=== PATIENT | female | born 1970 | race African-American/Black ===

== ENCOUNTER 2018-09-04 09:33 | Outpatient (CLI) | payer MEDICARE, OTHER ==
--- NOTE | 2018-09-04 14:32 | RAD ---
LEFT HIP 2 VIEWS: Date: 09/04/18 COMPARISON: None. HISTORY: Pain in the left hip joint. FINDINGS: There is mild superior joint space narrowing and mild lateral acetabular osteophyte formation on the left. No acute fracture or dislocation seen. IMPRESSION: No acute findings. POS: [facility]
--- NOTE | 2018-09-04 14:33 | RAD ---
FRONTAL RADIOGRAPH PELVIS: Date: 09/04/18 HISTORY: Pain. FINDINGS: There is mild degenerative change involving bilateral hips and pubic symphysis. The pelvic ring is in tact. No widening of the sacroiliac joints of the pubic symphysis. No acute fracture. IMPRESSION: No acute findings. POS: [facility]
== END 2018-09-04 09:34 | disposition home or self-care (01) ==
LOC: RAD 09:33
PROVIDERS: ATTEND Nurse Practitioner Family
DX: M25.552 Pain in left hip (principal); R51 Headache
CPT/HCPCS: 72170; 85652

== ENCOUNTER 2018-09-08 10:21 | Outpatient (CLI) | payer MEDICARE, OTHER ==
--- NOTE | 2018-09-08 13:01 | MRI ---
MRI LUMBAR SPINE WITHOUT CONTRAST: History: Intervertebral disc disorder with radiculopathy. Several years of low back pain. Comparison: None. Technique: MRI of the lumbar spine was performed without intravenous gadolinium administration. Multi sequential, multiplanar imaging was performed. FINDINGS: Appropriate T1 marrow signal intensity in the lumbar vertebra. Lumbar vertebral body height is mainta ined. There is no fracture. No significant STIR hyperintensity to suggest edema or ligamentous injury . Symmetric signal intensity of the psoas muscles. Visualized solid organs are unremarkable. Conus medullaris terminates at the inferior aspect of L1. T12-L1: Adequate disc hydration. No significant central canal stenosis. L1-2: Adequate disc hydration. No significant central canal stenosis. Neural foramina are patent. L2-3: Adequate disc hydration. No significant central canal stenosis. Neural foramina are patent. L3-4: Adequate disc hydration. No significant central canal stenosis. Foramina are patent. L4-5: Adequate disc hydration. No significant central canal stenosis. Right neural foramen is patent. There is mild left foraminal narrowing due to disc material. There is mild bilateral facet hypertro phy. L5-S1: No significant central canal stenosis. Neural foramina are patent. Mild bilateral facet hypert rophy. IMPRESSION: No significant central canal stenosis or foraminal narrowing. POS: [facility]
== END 2018-09-08 10:22 | disposition home or self-care (01) ==
LOC: TBSIIMAG 10:21
PROVIDERS: ATTEND Nurse Practitioner Family
DX: M51.16 Intervertebral disc disorders with radiculopathy, lumbar region (principal)
CPT/HCPCS: 72148

== ENCOUNTER 2018-11-07 09:45 | Outpatient (CLI) | payer MEDICARE, MEDICAID | END 2018-11-07 09:46 | disposition home or self-care (01) | LOC: BICMAMMO 09:45 | PROVIDERS: ATTEND Family Medicine | DX: Z12.31 Encounter for screening mammogram for malignant neoplasm of breast (principal) | CPT/HCPCS: 77063; 77067 ==

== ENCOUNTER 2019-01-31 11:43 | Emergency (ER) | payer MEDICARE, MEDICAID ==
[2019-01-31 12:31] LABS: #Basophils 0.1 thou/uL (0.0-0.2); #Eosinphils 0.2 thou/uL (0.0-0.7); #Lymphocytes 2.9 thou/uL (1.20-3.40); #Monocytes 0.6 thou/uL (0.11-0.59); #Neutrophils 5.9 thou/uL (1.40-6.50); %Basophils 1.1 % (0.0-1.0); %Eosinophils 2.4 % (0.0-10.0); %Monocytes 5.8 % (0.0-10.0); %Neutrophils 60.7 % (42.0-75.0); Hemoglobin 13.2 g/dL (12.0-16.0); Mean Corpuscular Volume 82.5 fL (78.0-98.0); Mean Platelet Volume 7.8 fL (7.4-10.4); Platelet Count 327 thou/uL (130-400); RBC Distribution Width 14.8 % (11.5-14.5); Red Blood Cell (RBC) Count 4.72 mill/uL (4.20-5.40); White Blood Cell (WBC) Count 9.7 thou/uL (4.8-10.8)
--- NOTE | 2019-01-31 12:38 | RAD ---
CHEST ONE VIEW: HISTORY: Chest palpitations. Chest pain. COMPARISON: 08/02/2017 FINDINGS: Heart size is normal. Lungs show no acute confluent pneumonia, overt edema, or pleural effusion. IMPRESSION: 1. No acute intrathoracic disease. 2. Atherosclerosis of the aorta. 3. Stable from prior study. No new process. POS: [facility]
[2019-01-31 12:49] LABS: ALT (SGPT) 27 U/L (8-55); AST (SGOT) 28 U/L (5-34); Albumin 4.5 g/dL (3.5-5.0); Alkaline Phosphatase 98 U/L (40-150); Anion Gap 13 mmol/L (10-20); BUN (Urea Nitrogen) 12 mg/dL (7.0-18.7); Bilirubin, Total 0.7 mg/dL (0.2-1.2); CK (CPK) 324 U/L (29-168); Calc. Creatinine Clearance 0 mL/min (70-130); Calcium 9.3 mg/dL (7.8-10.44); Carbon Dioxide 25 mmol/L (22-29); Chloride 107 mmol/L (98-107); Estimated GFR-MDRD Greater than 90; Globulin 2.8 g/dL (2.4-3.5); Glucose 101 mg/dL (70-105); Lipase 25 U/L (8-78); Protein, Total 7.3 g/dL (6.0-8.3); Sodium 141 mmol/L (136-145)
[2019-01-31] MEDS ORDERED: Lidocaine Viscous Sol 2% 15 ml UD Cup ONE (13:04)
[2019-01-31] MEDS ORDERED: Mag-Al 1200 mg/1200 mg/30 ML UDCUP ONE (13:04)
== END 2019-01-31 13:35 | disposition home or self-care (01) ==
LOC: ERS 11:43
DX: F14.10 Cocaine abuse, uncomplicated (principal); R07.89 Other chest pain; K21.9 Gastro-esophageal reflux disease without esophagitis; I10 Essential (primary) hypertension; E78.5 Hyperlipidemia, unspecified; G43.909 Migraine, unspecified, not intractable, without status migrainosus; F41.9 Anxiety disorder, unspecified; Z79.899 Other long term (current) drug therapy; Z79.82 Long term (current) use of aspirin
CPT/HCPCS: 36415; 71045; 80053; 82550; 83690; 84484; 85025; 93005; 94760

== ENCOUNTER 2019-06-14 12:06 | Emergency (ER) | payer MEDICARE, OTHER ==
--- NOTE | 2019-06-14 12:23 | RAD ---
XR Chest 1 View Portable HISTORY: Chest pain COMPARISON: 01/31/2019 FINDINGS: The heart size is normal. The lungs are well expanded without focal areas of consolidation, pneumothorax or pleural effusions. IMPRESSION: No radiographic evidence of acute cardiopulmonary process.
[2019-06-14 12:29] LABS: #Basophils 0.1 thou/uL (0.0-0.2); #Eosinphils 0.1 thou/uL (0.0-0.7); #Lymphocytes 3.3 thou/uL (1.20-3.40); #Monocytes 0.5 thou/uL (0.11-0.59); #Neutrophils 3.9 thou/uL (1.40-6.50); %Basophils 1.1 % (0.0-1.0); %Eosinophils 1.9 % (0.0-10.0); %Lymphocytes 42.1 % (21.0-51.0); %Monocytes 5.8 % (0.0-10.0); %Neutrophils 49.1 % (42.0-75.0); Mean Corpuscular HGB CONC 34.4 g/dL (32.0-36.0); Mean Corpuscular Hemoglobin 28.2 pg (27.0-31.0); Mean Corpuscular Volume 82.1 fL (78.0-98.0); Mean Platelet Volume 7.5 fL (7.4-10.4); Platelet Count 352 thou/uL (130-400); RBC Distribution Width 13.6 % (11.5-14.5); Red Blood Cell (RBC) Count 4.97 mill/uL (4.20-5.40); White Blood Cell (WBC) Count 7.8 thou/uL (4.8-10.8)
[2019-06-14] MEDS ORDERED: Lidocaine Viscous Sol 2% 15 ml UD Cup ONE (12:43)
[2019-06-14] MEDS ORDERED: Mag-Al 1200 mg/1200 mg/30 ML UDCUP ONE (12:43)
[2019-06-14] MEDS ORDERED: Aspirin Chewable 81 MG TAB ONE (12:43)
[2019-06-14 12:52] LABS: ALT (SGPT) 12 U/L (8-55); AST (SGOT) 14 U/L (5-34); Albumin 5.2 g/dL (3.5-5.0); Alkaline Phosphatase 99 U/L (40-150); Anion Gap 12 mmol/L (10-20); BUN (Urea Nitrogen) 8 mg/dL (7.0-18.7); Bilirubin, Total 0.4 mg/dL (0.2-1.2); Calc. Creatinine Clearance 0 mL/min (70-130); Calcium 10.5 mg/dL (7.8-10.44); Carbon Dioxide 27 mmol/L (22-29); Chloride 102 mmol/L (98-107); Estimated GFR-MDRD 77; Globulin 3.6 g/dL (2.4-3.5); Glucose 94 mg/dL (70-105); Lipase 18 U/L (8-78); Potassium 3.8 mmol/L (3.5-5.1); Protein, Total 8.8 g/dL (6.0-8.3); Sodium 137 mmol/L (136-145)
== END 2019-06-14 13:14 | disposition home or self-care (01) ==
LOC: ERS 12:06
DX: K21.9 Gastro-esophageal reflux disease without esophagitis (principal); E78.5 Hyperlipidemia, unspecified; E78.00 Pure hypercholesterolemia, unspecified; I10 Essential (primary) hypertension; G43.909 Migraine, unspecified, not intractable, without status migrainosus; F41.0 Panic disorder [episodic paroxysmal anxiety]; Z79.899 Other long term (current) drug therapy; Z87.11 Personal history of peptic ulcer disease; Z79.82 Long term (current) use of aspirin
CPT/HCPCS: 71045; 80053; 83690; 84484; 85025; 93005; 94760

== ENCOUNTER 2019-11-08 08:44 | Outpatient (CLI) | payer MEDICARE, OTHER ==
--- NOTE | 2019-11-08 12:42 | MMO ---
Bilateral MAMMO Bilat Screen [facility]. CLINICAL HISTORY: Patient is 48 years old and is seen for screening. The patient has no family history of breast cancer. The patient has no personal history of cancer. The patient has a history of left Excisional Biopsy at age 19 - benign. VIEWS: The views performed were: bilateral craniocaudal with tomosynthesis and bilateral mediolateral oblique with tomosynthesis. FILMS COMPARED: The present examination has been compared to prior imaging studies performed at [facility] on 11/07/2018, and at [facility] on 09/09/2010, 07/15/2014 and 07/19/2016. This study has been interpreted with the assistance of computer-aided detection. MAMMOGRAM FINDINGS: There are scattered fibroglandular densities. There are no suspicious masses, suspicious calcifications, or new areas of architectural distortion. IMPRESSION: THERE IS NO MAMMOGRAPHIC EVIDENCE OF MALIGNANCY. A ROUTINE FOLLOW-UP MAMMOGRAM IN 1 YEAR IS RECOMMENDED. THE RESULTS OF THIS EXAM WERE SENT TO THE PATIENT. ACR BI-RADS Category 1 - Negative MAMMOGRAPHY NOTE: 1. A negative mammogram report should not delay a biopsy if a dominant of clinically suspicious mass is present. 2. Approximately 10% to 15% of breast cancers are not detected by mammography. 3. Adenosis and dense breasts may obscure an underlying neoplasm. Reported by: KOURTNEY FLORES MD Electonically Signed: [id number]
== END 2019-11-08 08:45 | disposition home or self-care (01) ==
LOC: BICMAMMO 08:44
PROVIDERS: ATTEND Family Medicine
DX: Z12.31 Encounter for screening mammogram for malignant neoplasm of breast (principal); Z91.89 Other specified personal risk factors, not elsewhere classified
CPT/HCPCS: 77063; 77067

== ENCOUNTER 2020-08-25 06:47 | Emergency (ER) | payer MEDICARE, OTHER ==
[2020-08-25] MEDS ORDERED: Ketorolac Tromethamine 30 MG/ML VIAL ONE (07:13)
== END 2020-08-25 07:27 | disposition home or self-care (01) ==
LOC: ERS 06:47
DX: M62.830 Muscle spasm of back (principal); K21.9 Gastro-esophageal reflux disease without esophagitis; I10 Essential (primary) hypertension; E78.5 Hyperlipidemia, unspecified; E78.00 Pure hypercholesterolemia, unspecified; Z79.899 Other long term (current) drug therapy; Z79.82 Long term (current) use of aspirin
CPT/HCPCS: 96372; 99283; J1885

== ENCOUNTER 2020-12-29 13:28 | Outpatient (CLI) | payer MEDICARE, OTHER | END 2020-12-29 13:29 | disposition home or self-care (01) | LOC: BICMAMMO 13:28 | PROVIDERS: ATTEND Family Medicine | DX: Z12.31 Encounter for screening mammogram for malignant neoplasm of breast (principal); Z91.89 Other specified personal risk factors, not elsewhere classified | CPT/HCPCS: 77063; 77067 ==

== ENCOUNTER 2022-04-20 11:32 | Outpatient (CLI) | payer MEDICARE, MEDICAID | END 2022-04-20 11:33 | disposition home or self-care (01) | LOC: BICMAMMO 11:32 | PROVIDERS: ATTEND Family Medicine | DX: Z12.31 Encounter for screening mammogram for malignant neoplasm of breast (principal); Z91.89 Other specified personal risk factors, not elsewhere classified | CPT/HCPCS: 77063; 77067 ==

== ENCOUNTER 2024-07-26 14:12 | Outpatient (CLI) | payer MEDICARE, OTHER | END 2024-07-26 14:13 | disposition home or self-care (01) | LOC: MRI 14:12 | PROVIDERS: ATTEND Nurse Practitioner Family | DX: M47.26 Other spondylosis with radiculopathy, lumbar region (principal); M51.16 Intervertebral disc disorders with radiculopathy, lumbar region | CPT/HCPCS: 72148 ==

== ENCOUNTER 2025-05-13 11:06 | Emergency (ER) | payer OTHER, MEDICAID ==
[2025-05-13 14:02] LABS: #Basophils 0.03 10x3/uL (0.0-0.2); #Eosinophils 0.24 10x3/uL (0.0-0.7); #Monocytes 0.46 10x3/uL (0.11-0.59); #Neutrophils 3.53 10x3/uL (1.40-6.50); %Basophils 0.4 % (0.0-1.0); %Eosinophils 3.2 % (0.0-10.0); %Lymphocytes 42.3 % (21.0-51.0); %Monocytes 6.2 % (0.0-10.0); %Neutrophils 47.6 % (42.0-75.0); Hematocrit 34.1 % (36.0-47.0); Hemoglobin 11.4 g/dL (12.0-16.0); Mean Corpuscular Hemoglobin 26.5 pg (27.0-31.0); Mean Corpuscular Volume 79.1 fL (78.0-98.0); Platelet Count 305 10x3/uL (130-400); Red Blood Cell (RBC) Count 4.31 mill/uL (4.20-5.40); White Blood Cell (WBC) Count 7.42 10x3/uL (4.8-10.8)
[2025-05-13 14:29] LABS: ALT (SGPT) Less than 7 U/L (Less than 34); AST (SGOT) 15 U/L (11-34); Albumin 4.0 g/dL (3.1-4.5); Alkaline Phosphatase 94 U/L (40-110); Anion Gap 13 mmol/L (10-20); BUN (Urea Nitrogen) 9 mg/dL (9.8-20.1); Bilirubin, Total 0.2 mg/dL (0.3-1.2); Calc. Creatinine Clearance 0 mL/min (70-130); Calcium 9.2 mg/dL (7.8-10.44); Carbon Dioxide 26 mmol/L (22-29); Chloride 103 mmol/L (98-107); Globulin 3.4 g/dL (2.4-3.5); Glucose 83 mg/dL (70-105); Lipase 16 U/L (8-78); Potassium 4.1 mmol/L (3.5-5.1); Sodium 138 mmol/L (136-145)
[2025-05-13] MEDS ORDERED: Ketorolac Tromethamine 30 MG (1 mL) VIAL ONE (14:55)
== END 2025-05-13 15:00 | disposition home or self-care (01) ==
LOC: ERS 11:06
DX: M54.50 Low back pain, unspecified (principal); S22.31XA Fracture of one rib, right side, initial encounter for closed fracture; I10 Essential (primary) hypertension; K21.9 Gastro-esophageal reflux disease without esophagitis; E78.00 Pure hypercholesterolemia, unspecified; Z79.82 Long term (current) use of aspirin; Z79.899 Other long term (current) drug therapy; X58.XXXA Exposure to other specified factors, initial encounter; R39.9 Unspecified symptoms and signs involving the genitourinary system
CPT/HCPCS: 74176; 80053; 83690; 85025; 96372; 99284; J1885; 36415; 87086